=== PATIENT | male | born 1965 | race Caucasian/White ===

== ENCOUNTER → 2019-02-24 | Day surgery (SDC) | payer BC ==
[~2019-02-24] MED LIST: Lactated Ringers 1,000 ML IV SCH; Propofol 200 MG/20 ML SDV IV ONE
--- NOTE | 2019-02-28 09:19 | OR ---
DATE OF OPERATION: 02/24/2019 PREOPERATIVE DIAGNOSIS: 1. ABDOMINAL PAIN. 2. HEME-POSITIVE STOOL. 3. GASTROESOPHAGEAL REFLUX DISEASE. POSTOPERATIVE DIAGNOSIS: 1. ABDOMINAL PAIN. 2. HEME-POSITIVE STOOL. 3. GASTROESOPHAGEAL REFLUX DISEASE. SURGEON: Reji Garrison MD PROCEDURE: 1. EGD WITH BIOPSIES X4, LUTHER. 2. FULL-LENGTH COLONOSCOPY WITH SNARE POLYPECTOMY X1. ANESTHESIA: MAC via [employer] MAINTENANCE TECHNICIAN. COMPLICATIONS: None. SPECIMEN: 1. Pyloric biopsy x2. 2. Adenomatous polyps, fundus x2. 3. Antral LUTHER. 4. Rectosigmoid tubular adenoma. FINDINGS: 1. Full-length EGD. 2. Peptic ulcer disease with distal antrum/pyloric ulcer. 3. Adenomatous polyps, fundus. 4. Full-length colonoscopy. 5. Minimal sigmoid diverticulosis. 6. Tubular adenoma, rectosigmoid junction. RECOMMENDATIONS: The patient will be placed on proton pump therapy for his peptic ulcer disease. He should have a followup colonoscopy in 5 years given the tubular adenoma. INDICATIONS: The patient was in to see Dr. Hernandez for ongoing dyspepsia, abdominal pain, and heartburn. He was found to have heme-positive stool and Dr. Hernandez recommended upper and lower endoscopy. DESCRIPTION OF PROCEDURE: The patient was prepped and draped, placed in the left lateral decubitus position. A lubricated Olympus gastroscope was inserted over a bit, advanced to cricopharyngeus area, and easily intubated in the esophagus. The esophageal lining was benign in its entire course. The Z-line was crisp and sharp at 40 cm. No distal esophagitis, stricturing, ulceration, or Harp's changes were seen. There was no spontaneous reflux visualized. No hernia seen. The scope was advanced into the stomach through the pylorus and into the second portion of the duodenum. This and the duodenal bulb were unremarkable. The scope was brought back into the stomach and retroflexed. The upper fundus and cardia were completely benign other than the patient did have a smattering of adenomatous polyps in the fundus, maybe 5 or 6, 2 of them were removed in their entirety with a forceps and sent for pathology. The rest of the fundus and most of the antrum were completely benign. In the distal portion of the antrum near the pylorus, the patient had evidence of healing erosion/ulceration with some gastritis present. We did 2 biopsies of the affected area and a CLOtest. Air was then suctioned from the stomach and the scope was removed without complication. A lubricated Olympus colonoscope was then inserted and easily advanced to the cecum. Direct visualization of the ileocecal valve and appendiceal orifice was accomplished. The bowel prep was fine. Upon withdrawal, the right transverse and descending colons were completely unremarkable. The patient did have a few scattered diverticula in the sigmoid area, minimal in any severity without any inflammatory changes. Around 20 cm in the rectosigmoid junction, the patient had a tubular adenoma removed easily with a snare and suctioned into polyp trap #1. The rectal vault itself was benign. Retroflexion showed no perianal lesions. Air was then suctioned and scope removed without complication. HILARY/CHERYL /[id number] cc: Bruno Hernandez MD [address] [address]
== END ==
LOC: CC.SDS 09:15
PROVIDERS: ATTEND Family Medicine
DX: K57.31 Diverticulosis of large intestine without perforation or abscess with bleeding (principal); K25.4 Chronic or unspecified gastric ulcer with hemorrhage; K63.5 Polyp of colon; K21.9 Gastro-esophageal reflux disease without esophagitis; K31.7 Polyp of stomach and duodenum; K31.89 Other diseases of stomach and duodenum; E78.5 Hyperlipidemia, unspecified; M19.90 Unspecified osteoarthritis, unspecified site; N40.1 Benign prostatic hyperplasia with lower urinary tract symptoms; R35.1 Nocturia
CPT/HCPCS: 43239; 45385; 87081; J2704; J7120